=== PATIENT | male | born 1975 | race Two or more races ===

== ENCOUNTER 2019-03-18 19:53 | Observation (INO) | payer OTHER ==
[2019-03-18] MEDS ORDERED: ASPIRIN 81 MG TABLET, CHEWABLE PO ONE (20:52)
--- NOTE | 2019-03-18 20:56 | ER Document Report ---
ED Medical Screen (RME) - General Chief Complaint: Chest Pain Stated Complaint: CHEST PAIN Time Seen by Provider: 03/18/19 20:36 Notes: 43 year old male chief complaint of chest pain, started last night, moves over the left breast to mid chest and up into the neck. Pain is sharp and intermittent. Patient states he thinks it may be "muscle" but he wants to be checked. Reports shortness of breath with pain. He smokes, denies any diagnosed medical problems, or prescribed medications, states his father had an LA. Denies alcohol or recreational drugs. TRAVEL OUTSIDE OF THE [place] IN LAST 30 DAYS: No Physical Exam - Vital signs Vitals: Temp Pulse Resp BP Pulse Ox 98.4 F 85 18 153/89 H 94 03/18/19 20:07 03/18/19 20:07 03/18/19 20:07 03/18/19 20:07 03/18/19 20:07 - General General appearance: Appears well In distress: None - Respiratory Respiratory status: No respiratory distress. No: Labored Breath sounds: Normal. No: Decreased air movement - Cardiovascular Rhythm: Regular. No: Tachycardia Heart sounds: Normal auscultation, S1 appreciated, S2 appreciated Course - Re-evaluation Re-evalutation: I have greeted and performed a rapid initial assessment of this patient. A comprehensive ED assessment and evaluation of the patient, analysis of test results and completion of the medical decision making process will be conducted by additional ED providers. - Vital Signs Vital signs: Temp Pulse Resp BP Pulse Ox 98.4 F 85 18 153/89 H 94 03/18/19 20:07 03/18/19 20:07 03/18/19 20:07 03/18/19 20:07 03/18/19 20:07
--- NOTE | 2019-03-18 21:31 | RADIOLOGY REPORT (SQ) ---
EXAM DESCRIPTION: XR CHEST 2 VIEWS COMPLETED DATE/TME: 03/18/2019 20:52 CLINICAL HISTORY: 43 years, Male, chest pain, shortness of breath COMPARISON: None. NUMBER OF VIEWS: Three views of the chest were obtained TECHNIQUE: Frontal and lateral radiograph of the chest. LIMITATIONS: None. FINDINGS: Cardiac and mediastinal contours are normal in appearance. Lungs are clear. No pleural effusion or pneumothorax. IMPRESSION: No acute disease. copyright 2010 [employer]- All Rights Reserved
--- NOTE | 2019-03-18 22:01 | ER Document Report ---
ED General - General Chief Complaint: Chest Pain Stated Complaint: CHEST PAIN Time Seen by Provider: 03/18/19 20:36 Notes: Patient is a 43-year-old male who is visiting from [place]. He does speak some [place] but there is obviously some interpretation that he does understand therefore his friend who is at bedside requested that he interpret for the patient. Patient is agreeable to this. I asked the friend to ask questions exactly how asked them and interpret the answers directly back to me. Patient is a 43-year-old male presents with complaint of chest pain. Chest pain started today. Substernal radiating to left arm and up to left neck. Nothing seems make it better or worse. Is not positional. Is not made worse with movement. Not made worse with taking a deep breath. When the pain is more intense he does feel short of breath. He has never had this before. History of obesity and hypertension. Denies history of diabetes. No history of cardiac stress testing or cardiac work-up. TRAVEL OUTSIDE OF THE [place] IN LAST 30 DAYS: No - Related Data Allergies/Adverse Reactions: No Known Allergies Allergy (Unverified 03/18/19 22:44) Past Medical History - Social History Smoking Status: Never Smoker Frequency of alcohol use: Occasional Drug Abuse: None Family History: Reviewed & Not Pertinent Review of Systems - Review of Systems Notes: My Normal Review Basic REVIEW OF SYSTEMS: CONSTITUTIONAL : Denies fever, chills, or sweats. Denies recent illness. EENT: Denies eye, ear, throat, or mouth pain or symptoms. Denies nasal or sinus congestion. CARDIOVASCULAR: Chest pain RESPIRATORY: Denies cough, cold, or chest congestion. Denies shortness of breath, difficulty breathing, or wheezing. GASTROINTESTINAL: Denies abdominal pain. Denies nausea, vomiting, or diarrhea. MUSCULOSKELETAL: Denies neck or back pain or joint pain or swelling. SKIN: Denies rash or skin lesions. NEUROLOGICAL: Denies altered mental status or loss of consciousness. Denies headache. Denies weakness or paralysis or loss of use of either side. Denies p roblems with gait or speech. Denies sensory or motor loss. ALL OTHER SYSTEMS REVIEWED AND NEGATIVE. Physical Exam - Vital signs Vitals: Temp Pulse Resp BP Pulse Ox 98.4 F 85 18 153/89 H 94 03/18/19 20:07 03/18/19 20:07 03/18/19 20:07 03/18/19 20:07 03/18/19 20:07 - Notes Notes: General Appearance: Well nourished, alert, cooperative, no acute distress, moderate obvious discomfort. Vitals: reviewed, See vital signs table. Head: no swelling or tenderness to the head Eyes: PERRL, EOMI, Conjuctiva clear Mouth: No decreasd moisture Chest wall: No reproducible pain to palpation of chest wall. Lungs: No wheezing, No rales, No rhonci, No accessory muscle use, good air exchange bilaterally. Heart: Normal rate, Regular rythm, No murmur, no rub Abdomen: Normal BS, soft, No rigidity, No abdominal tenderness, No guarding, no rebound, no abdominal masses, no organomegaly Extremities: strength 5/5 in all extremities, good pulses in all extremities, no swelling or tenderness in the extremities, no edema. Skin: warm, dry, appropriate color, no rash Neuro: speech clear, oriented x 3, normal affect, responds appropriately to questions. Course - Re-evaluation Re-evalutation: 03/19/19 01:23 Suspected patient's chest pain could be cardiac related being that he had chest pain that started chest rating to the neck and arm that was not reproducible palpation of movement, he has risk factors including obesity and hypertension, and his pain was completely resolved with 1 sublingual nitro. Patient's initial EKG and cardiac enzymes are negative. I spoke with patient and informed him that I do recommend admission for further cardiac work-up. Patient is agreeable to this. I did speak with the hospitalist, Dr. Casillas, who agreed to evaluate the patient for admission. Dictation of this chart was performed using voice recognition software; therefore, there may be some unintended grammatical errors. - Vital Signs Vital signs: Temp Pulse Resp BP Pulse Ox 98.4 F 85 16 162/89 H 96 03/18/19 20:07 03/18/19 20:07 03/18/19 22:51 03/18/19 22:51 03/18/19 22:51 - Laboratory Result Diagrams: 03/18/19 23:33 03/18/19 23:33 Laboratory results interpreted by me: 03/18/19 23:33 WBC 11.9 H RDW 14.1 H - EKG Interpretation by Me Additional EKG results interpreted by me: 03/18/19 22:01 EKG is reviewed and interpreted by me. EKG shows sinus rhythm with a rate of [address] segment elevation or depression. No ischemic T wave inversions. NH interval, QRS duration, QT intervals are within normal range. No old EKG available for comparison. Discharge - Discharge Clinical Impression: Chest pain Qualifiers: Chest pain type: unspecified Qualified Code(s): R07.9 - Chest pain, unspecified Condition: Stable Disposition: ADMITTED OBSERVATION Admitting Provider: Vinny (Hospitalist) Unit Admitted: Telemetry
--- NOTE | 2019-03-18 22:43 | EKG REPORT ---
SEVERITY:- NORMAL ECG - SINUS RHYTHM : Confirmed by: Sohan Gonzalez MD 18-Mar-2019 22:42:34
[2019-03-18] MEDS: NITROGLYCERIN 0.4 MG/TAB 25 TAB/BOTTLE SL PRN ×2 (22:53→23:14)
[2019-03-18] MEDS ORDERED: NITROGLYCERIN 2% OINTMENT 1 GM PACKET TP ONE (23:39)
[2019-03-18] MEDS ORDERED: ACETAMINOPHEN 325 MG TABLET PO ONE (23:39)
[2019-03-18 23:41] LABS: ABSOLUTE BASOPHILS # (AUTO) 0.1 10^3/uL (0.0-0.2); ABSOLUTE EOSINOPHILS # (AUTO) 0.4 10^3/uL (0.0-0.6); ABSOLUTE LYMPHOCYTES (AUTO) 2.6 10^3/uL (0.5-4.7); ABSOLUTE MONOCYTES (AUTO) 0.8 10^3/uL (0.1-1.4); BASOPHILS % (AUTO) 0.7 % (0-2); EOSINOPHILS % (AUTO) 3.7 % (0-6); HEMATOCRIT 46.9 % (37.9-51.0); HEMOGLOBIN 15.8 g/dL (13.5-17.0); LYMPHOCYTES % (AUTO) 21.9 % (13-45); MEAN CORPUSCULAR HGB CONC 33.7 g/dL (32.0-36.0); MEAN CORPUSCULAR VOLUME 86 fl (80-97); MONOCYTES % (AUTO) 6.3 % (3-13); PLATELET COUNT 214 10^3/uL (150-450); RED BLOOD COUNT 5.45 10^6/uL (4.35-5.55); RED CELL DISTRIBUTION WIDTH 14.1 % (11.5-14.0); SEGMENTED NEUTROPHILS % (AUTO) 67.4 % (42-78); TOTAL CELLS COUNTED % (AUTO) 100 %; WHITE BLOOD COUNT 11.9 10^3/uL (4.0-10.5)
[2019-03-19 00:03] LABS: ALANINE AMINOTRANSFERASE 62 U/L (21-72); ALBUMIN 4.5 g/dL (3.5-5.0); ALKALINE PHOSPHATASE 69 U/L (38-126); ANION GAP 12 (5-19); ASPARTATE AMINO TRANSFERASE 28 U/L (17-59); BILIRUBIN,DIRECT 0.3 mg/dL (0.0-0.4); BILIRUBIN,TOTAL 0.5 mg/dL (0.2-1.3); BLOOD UREA NITROGEN 17 mg/dL (7-20); CALCIUM 10.1 mg/dL (8.4-10.2); CARBON DIOXIDE 25 mmol/L (22-30); CHLORIDE 104 mmol/L (98-107); GLUCOSE 102 mg/dL (75-110); POTASSIUM 4.2 mmol/L (3.6-5.0); TOTAL PROTEIN 7.7 g/dL (6.3-8.2)
[2019-03-19] MEDS ORDERED: NITROGLYCERIN 0.4 MG/TAB 25 TAB/BOTTLE SL PRN (00:37)
[2019-03-19] MEDS ORDERED: ATORVASTATIN CALCIUM 80 MG TABLET PO SCH (00:45)
[2019-03-19] MEDS ORDERED: AMLODIPINE BESYLATE 10 MG TABLET PO ONE (01:07)
[2019-03-19] MEDS: LOSARTAN POTASSIUM 50 MG TABLET PO SCH ×2 (02:14→09:30)
--- NOTE | 2019-03-19 05:40 | PDOC H&P ---
History of Present Illness Admission Date/PCP: 03/19/19 00:52 Patient complains of: Chest pain History of Present Illness: DARIO BEE is a 43 year old male [place]-speaking only with a past medical history of morbid obesity untreated hypertension and tobacco. He presents with intermittent episodes of palpitations associated with chest pain over the last 2 4 hours. Pain radiated to the left shoulder and jaw not associated with shortness of breath, nausea vomiting or diaphoresis. He denies exacerbating factors but was alleviated by nitroglycerin in the emergency room. Patient usually in nonconsumer of alcohol but admits excessive alcohol over the last 72 hours. Initial work-up is unremarkable he is referred to the hospitalist for admission. He denies previous episode and he is currently pain-free Past Medical History Cardiac Medical History: Denies: Congestive Heart Failure, Myocardial Infarction, Hypertension Pulmonary Medical History: Denies: Asthma, Bronchitis, Chronic Obstructive Pulmonary Disease (COPD), Pneumonia, Tuberculosis Neurological Medical History: Denies: Seizures Renal/ Medical History: Denies: End Stage Renal Disease GI Medical History: Denies: Cirrhosis, Gastroesophageal Reflux Disease Musculoskeltal Medical History: Denies: Arthritis Psychiatric Medical History: Denies: Bipolar Disorder, Depression Hematology: Denies: Anemia, Bleeding Tendencies Past Surgical History Past Surgical History: Reports: None Social History Information Source: Patient Lives with: Spouse/Significant other Smoking Status: Current Every Day Smoker Frequency of Alcohol Use: Occasional Drugs: None - Advance Directive Resuscitation Status: Full Code Family History Family History: Arthritis, CAD, Hypertension Parental Family History Reviewed: Yes Children Family History Reviewed: Yes Sibling(s) Family History Reviewed.: Yes Medication/Allergy Allergies/Adverse Reactions: No Known Allergies Allergy (Unverified 03/18/19 22:44) Review of Systems Constitutional: PRESENT: as per HPI, weight gain. ABSENT: fever(s), headache(s), night sweats, weakness Eyes: ABSENT: visual disturbances Ears: ABSENT: hearing changes Cardiovascular: PRESENT: as per HPI, chest pain, palpitations. ABSENT: dyspnea on exertion, edema, orthropnea Respiratory: ABSENT: cough, hemoptysis Gastrointestinal: ABSENT: abdominal pain, constipation, diarrhea, hematemesis, hematochezia, nausea, vomiting Genitourinary: ABSENT: dysuria, hematuria Musculoskeletal: ABSENT: joint swelling Integumentary: ABSENT: rash, wounds Neurological: ABSENT: abnormal gait, abnormal speech, confusion, dizziness, focal weakness, syncope Psychiatric: ABSENT: anxiety, depression, homidical ideation, suicidal ideation Endocrine: ABSENT: cold intolerance, heat intolerance, polydipsia, polyuria Hematologic/Lymphatic: ABSENT: easy bleeding, easy bruising Physical Exam Vital Signs: Temp Pulse Resp BP Pulse Ox 98.5 F 82 16 130/84 H 97 03/19/19 02:56 03/19/19 02:56 03/19/19 02:56 03/19/19 02:56 03/19/19 02:56 Intake & Output 03/17/19 03/18/19 03/19/19 11:59 11:59 11:59 Weight 155.4 kg General appearance: PRESENT: no acute distress, morbidly obese, well-developed, well-nourished Head exam: PRESENT: atraumatic, normocephalic Eye exam: PRESENT: conjunctiva pink, EOMI, PERRLA. ABSENT: scleral icterus Ear exam: PRESENT: normal external ear exam Mouth exam: PRESENT: moist, tongue midline Neck exam: ABSENT: carotid bruit, JVD, lymphadenopathy, thyromegaly Respiratory exam: PRESENT: clear to auscultation blas. ABSENT: rales, rhonchi, wheezes Cardiovascular exam: PRESENT: RRR. ABSENT: diastolic murmur, rubs, systolic murmur Pulses: PRESENT: normal dorsalis pedis pul Vascular exam: PRESENT: normal capillary refill GI/Abdominal exam: PRESENT: normal bowel sounds, soft. ABSENT: distended, guarding, mass, organolmegaly, rebound, tenderness Rectal exam: PRESENT: deferred Extremities exam: PRESENT: full ROM. ABSENT: calf tenderness, clubbing, pedal edema Neurological exam: PRESENT: alert, awake, oriented to person, oriented to place, oriented to time, oriented to situation, CN II-XII grossly intact. ABSENT: motor sensory deficit Psychiatric exam: PRESENT: appropriate affect, normal mood. ABSENT: homicidal ideation, suicidal ideation Skin exam: PRESENT: dry, intact, warm. ABSENT: cyanosis, rash Results Laboratory Results: 03/18/19 23:33 03/18/19 23:33 03/18/19 03/18/19 03/18/19 23:33 23:33 23:33 WBC 11.9 H RBC 5.45 Hgb 15.8 Hct 46.9 MCV 86 MCH 29.0 MCHC 33.7 RDW 14.1 H Plt Count 214 Seg Neutrophils % 67.4 Lymphocytes % 21.9 Monocytes % 6.3 Eosinophils % 3.7 Basophils % 0.7 Absolute Neutrophils 8.0 Absolute Lymphocytes 2.6 Absolute Monocytes 0.8 Absolute Eosinophils 0.4 Absolute Basophils 0.1 Sodium 141.0 Potassium 4.2 Chloride 104 Carbon Dioxide 25 Anion Gap 12 BUN 17 Creatinine 0.74 Est GFR ( Amer) > 60 Est GFR (Non-Af Amer) > 60 Glucose 102 Calcium 10.1 Total Bilirubin 0.5 AST 28 ALT 62 Alkaline Phosphatase 69 Total Protein 7.7 Albumin 4.5 TSH 2.26 03/18/19 23:33 Troponin I < 0.012 Impressions: Chest X-Ray 03/18/19 20:52 IMPRESSION: No acute disease. copyright 2011 [employer]- All Rights Reserved Assessment and Plan - Diagnosis (1) Chest pain Qualifiers: Chest pain type: unspecified Qualified Code(s): R07.9 - Chest pain, unspecified Is this a current diagnosis for this admission?: Yes Plan: History suggestive of holiday heart in addition to multiple risk factors for coronary disease, follow-up serial cardiac enzymes, lipid profile, TSH, Cardiolite stress test (2) Palpitations Is this a current diagnosis for this admission?: Yes Plan: Likely holiday heart, Norvasc initiated, alcohol abstinence (3) Hypertension Is this a current diagnosis for this admission?: Yes Plan: Norvasc trial initiated. (4) Tobacco abuse Is this a current diagnosis for this admission?: Yes Plan: Tobacco Dependence patient received tobacco cessation counseling and offered nicotine replacement options (5) Morbid obesity Is this a current diagnosis for this admission?: Yes Plan: Morbid obesity will evaluate for metabolic cause with evaluation of thyroid function and dietitian consultation - Time Time Spent with patient: 25-34 minutes
[2019-03-19 06:27] LABS: CHOLESTEROL 211.87 mg/dL (0-200); TRIGLYCERIDES 277 mg/dL (<150)
[2019-03-19 06:37] LABS: DIRECT LDL 154 mg/dL (<100)
[2019-03-19 06:45] LABS: VLDL CHOLESTEROL 55.4 mg/dL (10-31)
[2019-03-19] MEDS ORDERED: ASPIRIN 81 MG TABLET, ENT COATED PO SCH (10:00)
[2019-03-19 12:44] VITALS: BP 146/83
--- NOTE | 2019-03-21 11:59 | PDOC DISCHARGE SUMMARY ---
General - Admit/Disc Date/PCP Admission Date/Primary Care Provider: 03/19/19 00:52 Discharge Date: 03/19/19 - Discharge Diagnosis (1) Chest pain Is this a current diagnosis for this admission?: Yes Summary: History suggestive of holiday heart in addition to multiple risk factors for coronary disease. EKG NSR CXR is begnin Troponins are negative x 3 TSH is nml. Lipid panel shows hyperlipidemia. Patient was admitted to the medical floor and monitored on continuous cardiac telemetry. He as declined to remain in house for stress testing. HEART Score 3; appropriate for discharge with outpatient follow up. Patient is dischrged to home in stabe condition, asymptomatic, and ambulatory on room air. He is advised to STOP smoking and decrease alcohol intake. He is instructed to start daily aspirin and statin therapy. He is advised to follow up with his PCP upon return to his home in [place]. (2) Hypertension Is this a current diagnosis for this admission?: Yes Summary: Continue Cardiac diet and amlodipine. (3) Morbid obesity Is this a current diagnosis for this admission?: Yes Summary: TSH is nml. Lifestyle modification and dietary discretion is advised. (4) Tobacco abuse Is this a current diagnosis for this admission?: Yes Summary: Smoking cessation encouraged; nicotine replacement therapies provided. (5) Hyperlipidemia Is this a current diagnosis for this admission?: Yes Summary: Lifestyle modification, dietary discretion; cardiac diet. Continue daily statin therapy. (6) Palpitations Is this a current diagnosis for this admission?: Yes Summary: Likely holiday heart. Advised to decrease alcohol intake. Continue amlodipine. - Additional Information Resuscitation Status: Full Code Discharge Diet: Cardiac Discharge Activity: Activity As Tolerated, Balance Activity w/Rest Prescriptions: Amlodipine Besylate [Norvasc 10 mg Tablet] 10 mg PO DAILY #30 tablet Nicotine [Nicoderm 21 mg/24 Hr Transderm Patch] 1 patch TD DAILY #30 patch.[id number] Home Medications: Amlodipine Besylate [Norvasc 10 mg Tablet] 10 mg PO DAILY #30 tablet 03/19/19 Aspirin [Ecotrin 81 mg EC Tablet] 81 mg PO DAILY #0 tabec 03/19/19 Losartan Potassium [Cozaar 50 mg Tablet] 100 mg PO DAILY tablet 03/19/19 Nicotine [Nicoderm 21 mg/24 Hr Transderm Patch] 1 patch TD DAILY #30 patch.td24 03/19/19 Omeprazole 20 mg PO DAILY 03/19/19 History of Present Illness History of Present Illness: Per H&P by Dr. Casillas: DARIO BEE is a 43 year old male [place]-speaking only with a past medical history of morbid obesity untreated hypertension and tobacco. He presents with intermittent episodes of palpitations associated with chest pain over the last 24 hours. Pain radiated to the left shoulder and jaw not associated with shortness of breath, nausea vomiting or diaphoresis. He denies exacerbating factors but was alleviated by nitroglycerin in the emergency room. Patient usually in nonconsumer of alcohol but admits excessive alcohol over the last 72 hours. Initial work-up is unremarkable he is referred to the hospitalist for admission. He denies previous episode and he is currently pain- free Physical Exam Vital Signs: Temp Pulse Resp BP Pulse Ox 98.5 F 103 H 22 H 146/83 H 96 03/19/19 12:00 03/19/19 12:00 03/19/19 12:00 03/19/19 12:00 03/19/19 12:00 Intake & Output 03/18/19 03/19/19 03/20/19 06:59 06:59 06:59 Weight 155.4 kg General appearance: PRESENT: no acute distress, morbidly obese, well-developed, well-nourished Head exam: PRESENT: atraumatic, normocephalic Eye exam: PRESENT: conjunctiva pink, EOMI, PERRLA. ABSENT: scleral icterus Ear exam: PRESENT: normal external ear exam Mouth exam: PRESENT: moist, tongue midline Neck exam: ABSENT: carotid bruit, JVD, lymphadenopathy, thyromegaly Respiratory exam: PRESENT: clear to auscultation blas, symmetrical, unlabored. ABSENT: rales, rhonchi, wheezes Cardiovascular exam: PRESENT: RRR, +S1, +S2. ABSENT: diastolic murmur, rubs, systolic murmur Pulses: PRESENT: normal dorsalis pedis pul Vascular exam: PRESENT: normal capillary refill GI/Abdominal exam: PRESENT: normal bowel sounds, soft. ABSENT: distended, guarding, mass, organolmegaly, rebound, tenderness Rectal exam: PRESENT: deferred Extremities exam: PRESENT: full ROM. ABSENT: calf tenderness, clubbing, pedal edema Neurological exam: PRESENT: alert, awake, oriented to person, oriented to place, oriented to time, oriented to situation, CN II-XII grossly intact. ABSENT: motor sensory deficit Psychiatric exam: PRESENT: appropriate affect, normal mood. ABSENT: homicidal ideation, suicidal ideation Skin exam: PRESENT: dry, intact, warm. ABSENT: cyanosis, rash Results Laboratory Results: 03/18/19 23:33 03/18/19 23:33 03/18/19 03/18/19 03/18/19 23:33 23:33 23:33 WBC 11.9 H RBC 5.45 Hgb 15.8 Hct 46.9 MCV 86 MCH 29.0 MCHC 33.7 RDW 14.1 H Plt Count 214 Seg Neutrophils % 67.4 Lymphocytes % 21.9 Monocytes % 6.3 Eosinophils % 3.7 Basophils % 0.7 Absolute Neutrophils 8.0 Absolute Lymphocytes 2.6 Absolute Monocytes 0.8 Absolute Eosinophils 0.4 Absolute Basophils 0.1 Sodium 141.0 Potassium 4.2 Chloride 104 Carbon Dioxide 25 Anion Gap 12 BUN 17 Creatinine 0.74 Est GFR ( Amer) > 60 Est GFR (Non-Af Amer) > 60 Glucose 102 Calcium 10.1 Total Bilirubin 0.5 AST 28 ALT 62 Alkaline Phosphatase 69 Total Protein 7.7 Albumin 4.5 Triglycerides Cholesterol LDL Cholesterol Direct VLDL Cholesterol HDL Cholesterol TSH 2.26 03/19/19 05:47 WBC RBC Hgb Hct MCV MCH MCHC RDW Plt Count Seg Neutrophils % Lymphocytes % Monocytes % Eosinophils % Basophils % Absolute Neutrophils Absolute Lymphocytes Absolute Monocytes Absolute Eosinophils Absolute Basophils Sodium Potassium Chloride Carbon Dioxide Anion Gap BUN Creatinine Est GFR ( Amer) Est GFR (Non-Af Amer) Glucose Calcium Total Bilirubin AST ALT Alkaline Phosphatase Total Protein Albumin Triglycerides 277 H Cholesterol 211.87 H LDL Cholesterol Direct 154 H VLDL Cholesterol 55.4 H HDL Cholesterol 32 L TSH 03/18/19 03/19/19 03/19/19 23:33 05:47 11:35 Troponin I < 0.012 < 0.012 < 0.012 Impressions: Chest X-Ray 03/18/19 20:52 IMPRESSION: No acute disease. copyright 2010 [employer]- All Rights Reserved Qualifiers - * PATIENT BEING DISCHARGED WITH ANY OF THE FOLLOWING DIAGNOSIS: No Acute Heart Failure - Is this a Heart Failure Patient?: No Plan Discharge Plan: Follow up with your primary care provider within 1 week. Do NOT smoke. Eat a low sodium, low fat, low calorie diet. Return to the emergency room as needed for concerning symptoms. Time Spent: Greater than 30 Minutes
== END 2019-03-19 14:56 | disposition home or self-care (01) ==
LOC: ER 19:53 → EH 03-19 00:52 → 5 03-19 02:54
PROVIDERS: ADMIT Internal Medicine; ATTEND Internal Medicine
DX: R07.9 Chest pain, unspecified (principal); E78.5 Hyperlipidemia, unspecified; I10 Essential (primary) hypertension; E66.01 Morbid (severe) obesity due to excess calories; R00.2 Palpitations; M25.512 Pain in left shoulder; R68.84 Jaw pain; R06.02 Shortness of breath; F17.200 Nicotine dependence, unspecified, uncomplicated; Z79.899 Other long term (current) drug therapy; Z79.82 Long term (current) use of aspirin; Z82.49 Family history of ischemic heart disease and other diseases of the circulatory system
CPT/HCPCS: 93005; 99285; 36415 ×2; 84443; 85025; 80053; 84484 ×2; 80061; 71046; 93010; G0378 ×2